=== PATIENT | female | born 2000 | race African-American/Black ===

== ENCOUNTER 2023-11-29 22:25 | Emergency (ER) | payer BC, SELFPAY ==
[2023-11-29 22:28] VITALS: BP 130/82; PULSE 100; RESP 14; TEMP 36.2; O2SAT 100
--- NOTE | 2023-11-29 23:53 | ED.HA ---
HPI - Headache General Chief Complaint: Headache Stated Complaint: headache Time Seen by Provider: 11/29/23 23:48 History of Present Illness HPI Narrative: 23-year-old female with reported history of migraines presents to emergency department for migraine and abdominal pain. Patient states she has had a migraine going on 3-4 days. States the pain was located by in her left eye but now has spread to her entire head. She reports associated photophobia denies phonophobia. Denies nausea or vomiting, diarrhea, fever. She is also reporting pain to her lower abdomen that started today. She states the pain is intermittent and describes it sharp in nature. She denies known aggravating or alleviating factors. Denies dysuria or hematuria, vaginal discharge, concern for STDs, prior abdominal surgeries. Last bowel movement was today and normal. Last menstrual period was 1 week ago and normal. Related Data Allergies Allergy/AdvReac Type Severity Reaction Status Date / Time No Known Allergies Allergy Verified 11/30/23 00:07 Review of Systems Review of Systems: All systems reviewed & are unremarkable except as noted in HPI and below Exam Narrative: GENERAL: Well-appearing, well-nourished, and in no acute distress. HEAD: Normocephalic, atraumatic. EYES: PERRLA and EOMI. ENT: Nares clear, no rhinorrhea or epistaxis. Mucous membranes moist. bilateral TMs are segura nonbulging normal canals. Normal posterior pharynx, no erythema or exudates. Uvula midline. NECK: Supple. No nuchal rigidity CHEST: Clear to auscultation. No respiratory distress. HEART: Regular rate and rhythm. No murmur heard. Normal peripheral pulses. ABDOMEN: normoactive bowel sounds. Abdomen soft with tenderness in the suprapubic region, left lower quadrant and right lower quadrant with voluntary guarding. No rebound or rigidity. No CVA tenderness. EXTREMITIES: Normal range of motion. No edema. SKIN: Warm, dry, no rash. NEURO: No focal deficits. Alert and oriented x3 . Moving all extremities spontaneously Course Vital Signs Vital signs: Vital Signs Temperature 97.2 F L 11/29/23 22:28 Pulse Rate 100 11/29/23 22:28 Respiratory Rate 14 11/29/23 22:28 Blood Pressure 130/82 11/29/23 22:28 Pulse Oximetry 100 11/29/23 22:28 Oxygen Delivery Room Air 11/29/23 22:28 Temperature 97.2 F L 11/29/23 22:28 Pulse Rate 92 11/30/23 01:45 Respiratory Rate 18 11/30/23 01:45 Blood Pressure 122/86 11/30/23 01:45 Pulse Oximetry 100 11/30/23 01:45 Oxygen Delivery Room Air 11/29/23 22:28 MDM - Headache MDM Narrative Medical decision making narrative: 23-year-old female with a reported history of migraines presents to emergency department for migraine for multiple dates and lower abdominal pain that started today. Her vitals are stable. Exam is significant for the above. CBC reveals leukocytosis of 20.6, microcytic anemia with a hemoglobin of 10.6, no bandemia. Chemistries with a mildly low potassium of 3.3, magnesium is normal. Potassium orally repleted. Lipase and lactic acid are normal. is negative. I was notified by shale processing technician that patient no longer wanted a CT. I re-evaluated the patient and she states that she would just like to go home. She states her headache has resolved her abdominal pain persists. I discussed my concerns for further workup for abdominal pain given her leukocytosis of 20.6. She verbalized understanding this but admits that she would still like to be discharged prior to CT scan. I discussed risks of leaving including undiagnosed appendicitis, diverticulitis, bowel obstruction and other and risks including worsening condition, disability and . She verbalizes understanding of these risks and will be leaving against medical advice. Advised her to come back to the emergency department if she would like further workup or evaluation. she also department in stable condition. Lab Data 11/30/23
[2023-11-30] VITALS: BP 120/89; PULSE 99; RESP 18; O2SAT 98
[2023-11-30] MEDS: KETOROLAC 15 MG/ML VIAL (*BKC) IV PUSH (00:17)
[2023-11-30] MEDS: diphenhydrAMINE HCl INJ 50 MG/ML VIAL 25 MG IV PUSH (00:17)
[2023-11-30] MEDS: PROCHLORPERAZINE EDISYLATE 10 MG/2 ML VIAL IV PUSH (00:18)
[2023-11-30] MEDS: SODIUM CHLORIDE 0.9% IV 1,000 ML 999 ML IV CONT (00:18)
[2023-11-30 00:29] LABS: Basophils Absolute Auto 0.1 K/mm3 (0.0-0.1); Basophils Percent Auto 0.3 % (0.2-1.2); Eosinophils Percent Auto 0.1 % (0-4.4); Hematocrit 34.9 % (37.0-47.0); Hemoglobin 10.6 g/dL (12.0-15.0); Immature Granulocyte Absolute 0.07 K/mm3 (0.00-0.031); Immature Granulocyte Percent A 0.3 % (0-0.5); Lymphocytes Percent Auto 14.6 % (18.3-44.2); Mean Corpuscular HGB Conc 30.4 g/dl (32-36); Mean Corpuscular Hemoglobin 22.2 pg (26-34); Mean Corpuscular Volume 73.2 fl (80-100); Mean Platelet Volume 9.4 fl (7.4-10.4); Monocytes Absolute Auto 1.1 K/mm3 (0.1-0.6); Monocytes Percent Auto 5.2 % (2.6-8.5); Neutrophils Absolute Auto 16.4 K/mm3 (1.3-6.7); Neutrophils Percent Auto 79.5 % (45.5-73.1); Platelet Count Result 476 k/mm3 (150-375); Red Blood Count 4.77 M/mm3 (4.2-5.4); Red Cell Distribution Width 16.6 % (11.5-14.5); White Blood Count 20.6 K/mm3 (4.5-10.0)
[2023-11-30 00:38] LABS: Lactic Acid Reflex 1.7 mmol/L (0.7-2.0)
[2023-11-30 00:39] LABS: Alanine Aminotransferase 12 U/L (6-35); Albumin Level 4.9 g/dL (3.5-5.1); Alkaline Phosphatase 56 U/L (38-126); Anion Gap 12 mmol/L (4-12); Aspartate Amino Transferase 24 U/L (14-36); Bilirubin,Total 0.8 mg/dL (0.2-1.3); Blood Urea Nitrogen 6 mg/dL (7-17); Calcium 9.4 mg/dL (8.4-10.2); Carbon Dioxide 25 mmol/L (22-30); Chloride 102 mmol/L (98-107); Estimated CRCL calculation 116 ml/min; Estimated Glomerular Filt Rate > 60; Glucose 90 mg/dL (65-110); Lipase 101 U/L (23-300); Potassium 3.3 mmol/L (3.4-5.0); Sodium 139 mmol/L (137-145)
[2023-11-30 01:01] LABS: Magnesium 1.8 mg/dL (1.6-2.3)
[2023-11-30] MEDS: POTASSIUM CHLORIDE 20 MEQ PACKET (FOR LIQUID) PO (01:39)
[2023-11-30 01:45] VITALS: BP 122/86; PULSE 92; RESP 18; O2SAT 100
--- NOTE | 2023-11-30 01:54 | PC.NURSE ---
This RN asked pt to sign 2 papers. AMA paperwork and dc papers. Pt only signed AMA paperwork prior to leaving.
[2023-11-30 02:02] LABS: Appearance Urine Cloudy (Clear); Bilirubin Urine Negative (Negative); Blood Urine Negative (Negative); Color Urine Yellow (Yellow); Glucose Urine UA Negative (Negative); Ketones Urine Trace mg/dL (Negative); Leukocyte Esterase Ur Negative LEU/UL (Negative); Nitrate Urine Negative (Negative); Protein Urine Trace mg/dL (Negative); Specific Grav Ur 1.027 (1.001-1.035); pH Urine 7.5 (5.0-9.0)
[2023-11-30 02:07] LABS: Add Urine Microscopic? YES
== END 2023-11-30 01:45 | disposition left against medical advice (07) ==
PROVIDERS: Emergency Provider Physician Assistant; PCP Physician Assistant Medical
DX: R51.9 Headache, unspecified (principal); R10.30 Lower abdominal pain, unspecified; D72.829 Elevated white blood cell count, unspecified
CPT/HCPCS: 36415; 80053; 81001; 81025; 83605; 83690; 83735; 85025; 96361; 96374; 96375; 99284; A9270; J0780; J1200; J1885; J7030

== ENCOUNTER 2024-11-30 16:07 | Emergency (ER) | payer MEDICAID, SELFPAY ==
--- OUTSIDE RECORDS SUMMARY | 2024-11-30 16:10 | XMS_ITS | Data Portability ---
Author Organization [facility] rupa [place] [place] Address [address] [place] [address] Assessment No assessment recorded. Plan of Treatment Reminders Order Date Submit Date Provider Last Modified By Organization Details Last Modified Time Details Appointments None recorded . Lab None recorded . Referral None recorded . Procedures None recorded . Surgeries None recorded . Imaging US, breast - PATIENT WITH PALPABLE MASS RIGHT BREAST HAS APPEARAN CE OF FIBROADE NOMA ON US IN THE OFFICE. FOLLOW UP IMAGING TO BE DONE IN AUGUST [id number] [email or web address] Not available 0 12:29:12 Medication Orders None recorded . Patient TargetsNo targets recorded. Patient InstructionsNo instructions recorded. Reason for Referral None Reported. Problems No Known Problems Procedures Surgical History Date Name Laterality Status Provider Name and Address Organization Details Recorded Time 9 US Diagnostic Breast completed Abdiel Infante MD [address] [place] [address], [id number] 02/19/2019 14:56:43 Imaging Results None recorded. Procedure Notes None recorded. Medical Equipment None Reported. Allergies No known drug allergies Medications Not known to be on any medication Vitals Date Recorded Body height Body mass index (BMI) Body mass index (BMI) [Percentile] Per age and sex Body weight Heart rate Systolic And Diastolic Provider Name and Address Organization Details Last Updated DateTime 9 170.18 cm 21.1 kg/m2 44 % 40520.9 7 g 94 /min 126/78 mm[Hg] [facility] 9 09:53:07 Social History Question Answer Notes LastModified by Organizat [employer] Details LastModified Time Tobacco Smoking Status Never Smoker [facility] [facility] null, [facility] 02/19/2019 09:53:20 Tobacco Status Never User [email or web address] Informati on not available 02/19/2019 Sex: Unknown Functional Status Question Answer Note LastModified by Organizat ion Details LastModified Time What is your level of alcohol consumption? Occasional once a month [email or web address] Information not available 02/19/2019 Mental Status None recorded. Family History Relationship Description Onset Age of this Age Resolved Age Notes LastModified by Organization Details LastModified Time Unspecified Relation Malignant tumor of breast [facility] [email or web address] Not available 02/19/2019 10:12:09 Medical History No medical history recorded. Gynecological History Statement/Question Response Flow Moderate Date of LMP 02/19/2019 Menses Monthly Y Age at Menarche 13 Number of pregnancies 0 LMP Definite Obstetrics History GPAL:G 0 P 0 0 0 0 Past Encounters Encounter ID Performer Location Encounter Start Date Encounter Closed Date Diagnosis/Indication Diagnosis SNOMED-CT Code Diagnosis ICD10 Code Diagnosis Note [id number] Abdiel Infante MD [facility] [address] , [address] [place] [address] 02/19/2019 09:28:05 02/19/2019 10:47:06 Breast lump [id number] N63.0 Patient with palpable right breast mass 10:00. By ultrasound this mass has features c/w a fibroadeno ma. The clinical and diagnostic findings were discussed with Ni Dada. Recommend observatio n for now, with follow up by imaging and exam in 6 months. See the order below. Abnormal f indings on diagnostic imaging of breast 221372359 R92.8 RIGHT breast US with well defined hypoechoic mass 10:00 3 cmfn, measuring 1.22 x 1.13 x 1.31. BI-RADS 3. Recommend short term follow up in 6 months. Health Concerns Section Related Observation LastModified by Organization Detai ls LastModified Time None Recorded Concern Status LastModified by Organization Details LastModified Time None Recorded Advance Directives Directive None Recorded Payers Insurance Date Sequence Insurance Name Policy Number Policy Tovar Covered Member ID Tovar Member ID Guarantor Name 02/19/2019 1 [facility] [id number] Beverly Irwin [id number] Beverly Garland Notes Date Note Type Note Provider Name and Address Organization Details Recorded Time 02/19/2019 text/html Ms Garland was referred by the urgent care center. She is a 19 yo young lady who presents with the complaint of a lump in the right breast one week ago. She states that it is tender along the outer aspect. She denies any skin changes but does report milky discharge. The discharge is spontaneous in nature. She states that she has not had imaging of the breast. Abdiel Infante MD [address] [place] [address], [place], [address], [facility] 02/19/2019 15:04:39 OBGyn Episode No OBEpisode recorded.
--- OUTSIDE RECORDS SUMMARY | 2024-11-30 16:10 | XMS_ITS | Clinical Summary ---
Author Organization [employer] Address [address] [place] [address] Care Team Providers Care Firer Locomotive Name Role Phone Unavailable Primary Care Provider Unavailabl e Encounters Date Type Department Care Team Description 10/03/2024 External Device Data [facility] ABSTRACTION Provider, Abstract 10/03/2024 External Device Data [facility] Provider, Abstract 10/02/2024 External Device Data [facility] Provider, Abstract 10/01/2024 External Device Data [facility] Provider, Abstract from Last 3 Months Social History Tobacco Use Types Packs/Day Years Used Date Smoking Tobacco: Never Assessed Comments Unknown Sex and Gender Information Value Date Recorded Sex Assigned at Not on file 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
--- OUTSIDE RECORDS SUMMARY | 2024-11-30 16:10 | XMS_ITS | Clinical Summary ---
Author Organization [facility] Address [address] [place] [id number] Care Team Providers Care Copy Chaser Name Role Phone None, Provider Primary Care Provider Unavaila ble Allergies No known active allergies Medications fluconazole (DIFLUCAN) 150 MG tablet Take 1 tablet (150 mg total) by mouth daily. 04/25/2023 Active FEROSUL 325 (65 Fe) MG tablet Take 1 tablet (325 mg total) by mouth daily with breakfast. 12/29/2023 Active Active Problems No known active problems Social History Tobacco Use Types Packs/Day Years Used Date Smoking Tobacco: Never Assessed Comments No Sex and Gender Information Value Date Recorded Sex Assigned at Not on file Legal Sex Female 3:51 PM CDT Gender Identity Not on file Sexual Orientation Not on file Last Filed Vital Signs Vital Sign Reading Time Taken Comments Blood Pressure 124/75 08/15/2024 9:55 AM CDT Pulse 78 08/15/2024 9:55 AM CDT Temperature 36.6 C (97.8 F) 08/15/2024 9:55 AM CDT Respiratory Rate 18 01/29/2024 6:39 PM CDT Oxygen Saturation 99% 08/15/2024 9:55 AM CDT Inhaled Oxygen Concentration - - Weight 63.5 kg (140 lb) 01/29/2024 6:39 PM CDT Height 167.6 cm (5' 6) 01/29/2024 6:39 PM CDT Body Mass Index 22.6 01/29/2024 6:39 PM CDT Plan of Treatment Health Maintenance Due Date Last Done Comments Cervical Cancer Screening Pap Smear (Age 21 to 29) Every 3 Years 2000 Cervical Cancer Screening 2000 Annual Physical 02/04/2003 Hepatitis C 02/04/2018 Meningococcal B Vaccine (2 of 2 - Bexsero SCDM 2-dose series) 07/16/2018 01/16/2018 COVID-19 Vaccine ( season) 2024 10/19/2020, 09/28/2020 PHQ-2 (Physician [place]) 05/15/2024 DTaP, Tdap and Td Vaccines (8 - Td or Tdap) 04/10/2033 04/10/2023, 06/16/2011, 03/02/2004, Additional history exists Hepatitis B Vaccines Completed 2000, 2000, 2000 Pneumococcal Vaccine: Pediatrics (0 to 5 Years) and At-Risk Patients (6 to 49 Years) Aged Out 2000, 2000, 2000 No longer eligible based on patient's age to complete this topic HPV Vaccines Completed 12/07/2012, 12/14, 06/16/2011 Meningococcal Vaccine Completed 01/09/2017, 012 RSV Immunizations Under 20 Months Aged Out No longer eligible based on patient's age to complete this topic Insurance Care Teams Copy Chaser Relationship Specialty Start Date End Date None, Provider, MD PCP - General UNKNOWN PHYSICIAN SPECIALTY 01/16/24
--- OUTSIDE RECORDS SUMMARY | 2024-11-30 16:10 | XMS_ITS | Encounter Summary ---
Author Organization [facility] Address [address] [place] [address] Care Team Providers Care Industrial Editor Name Role Phone Unavailable Primary Care Provider Unavailabl e Reason for Visit * Reason Onset Date Comments OTHER 09/08/2023 Encounter Details Date Type Department Care Team (Late st Contact Info) Description 09/08/2023 Telephone [facility] Primary Care - [address] [place] [phone] Sultana Luna PA-C NO ADDRESS ON FILE OTHER Social History Tobacco Use Types Packs/Day Years Used Date Smoking Tobacco: Never Assessed Comments Unknown Sex and Gender Information Value Date Recorded Sex Assigned at Not on file 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 * Telephone Encounter - Kanika Pina - 09/08/2023 2:34 PM CDT Copied from [facility] #[id number]. Topic: Patient or Caregiver Communication Request >> Sep 08, 2023 2:27 PM Kanika Mccoy wrote: Patient or Caregiver requesting advice Caller: Beverly Garland Patient/Caregiver Callback Number: [phone] Call Notes: Patient is asking for a call back from Sultana Luna. Relayed message in chart but patient is requesting a call back. documented in this encounter Plan of Treatment Not on file documented as of this encounter Visit Diagnoses Not on filedocumented in this encounter
--- OUTSIDE RECORDS SUMMARY | 2024-11-30 16:10 | XMS_ITS | Encounter Summary ---
Author Organization [facility] Address [address] [place] [address] Care Team Providers Care Sales Correspondence Clerk Name Role Phone Unavailable Primary Care Provider Unavailabl e Reason for Visit * Reason Comments Needs Form Or Letter Filled Out Encounter Details Date Type Department Care Team (Late st Contact Info) Description 08/31/2023 Telephone [facility] Primary Care - [address] [place] [phone] Sultana Luna PA-C NO ADDRESS ON FILE Needs Form Or Letter Filled Out Social History Tobacco Use Types Packs/Day Years Used Date Smoking Tobacco: Never Assessed Comments Unknown Sex and Gender Information Value Date Recorded Sex Assigned at Not on file 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 Topic: Patient or Caregiver Communication Request >> Aug 31, 2023 1:43 PM Etta Orourke wrote: Patient or Caregiver insisting that a message be sent to Care Team Caller: [phone] (home) Patient/Caregiver Callback Number: [phone] Call Notes: Patient reached out via chat- requesting to speak with her previous provider Sultana Luna. Per patient, I need to speak with Sultana Luna. It's an emergency please.She was my previous primary care doctor and she made a mistake on a form I needed for college. Due to the mistake, my University thinks I just dropped out of school. I need to talk to her as soon as possible please. Without the letter corrected from her, I will have to pay the university a large amount of money for a semester that I was medically withdrawn from. Please contact patient documented in this encounter Plan of Treatment Not on file documented as of this encounter Visit Diagnoses Not on filedocumented in this encounter
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
--- NOTE | 2024-11-30 16:13 | ECG_ITS ---
Test Date: 2024-11-30 16:30:37 Measurements Intervals [place] Rate: 76 P: 74 OK: 178 QRS: 101 QRSD: 76 T: 55 QT: 369 QTc: 417 Interpretive Statements SINUS RHYTHM MARKED RIGHT AXIS DEVIATION [QRS AXIS > 100] ABNORMAL ECG No previous ECG available for comparison Electronically Signed On 12-01-2024 08:09:12 CDT by Manny Arauz M.D.
[2024-11-30 16:37] VITALS: BP 111/74; PULSE 80; RESP 16; TEMP 36.6; O2SAT 100
[2024-11-30 16:40] LABS: Hematocrit 38.8 % (37.0-47.0); Hemoglobin 11.1 g/dL (12.0-15.0); Immature Granulocyte Percent A 0.3 % (0-0.5); Lymphocytes Absolute Auto 3.26 K/mm3 (0.9-3.2); Mean Corpuscular HGB Conc 28.6 g/dl (32-36); Mean Corpuscular Hemoglobin 20.3 pg (26-34); Mean Corpuscular Volume 70.8 fl (80-100); Nucleated Red Blood Cells Absolute Auto 0.000 K/mm3 (0.0-0.012); Nucleated Red Blood Cells Perc 0.0 % (0.0-0.2); Platelet Count Result 421 k/mm3 (150-375); Red Blood Count 5.48 M/mm3 (4.2-5.4); White Blood Count 10.1 K/mm3 (4.5-10.0)
[2024-11-30 16:51] LABS: INR 1.1; Prothrombin Time 14.6 Seconds (11.1-14.7)
[2024-11-30 16:52] LABS: Partial Thromboplastin Time 26.9 Seconds (22.3-36.8)
[2024-11-30 16:55] LABS: Alanine Aminotransferase 29 U/L (6-35); Albumin Level 5.0 g/dL (3.5-5.1); Alkaline Phosphatase 80 U/L (38-126); Anion Gap 17 mmol/L (4-12); Aspartate Amino Transferase 109 U/L (14-36); Bilirubin,Total 1.2 mg/dL (0.2-1.3); Blood Urea Nitrogen 13 mg/dL (7-17); Calcium 9.6 mg/dL (8.4-10.2); Carbon Dioxide 18 mmol/L (22-30); Chloride 103 mmol/L (98-107); Estimated CRCL calculation 90 ml/min; Estimated Glomerular Filt Rate > 60; Glucose 106 mg/dL (65-110); Lipase 122 U/L (23-300); Potassium 3.5 mmol/L (3.4-5.0); Sodium 138 mmol/L (137-145); Total Protein 9.6 g/dL (6.3-8.2)
[2024-11-30 17:04] LABS: Schistocytes None Seen
[2024-11-30 17:05] LABS: Anisocytosis 2+; Hypochromasia 1+
[2024-11-30 17:06] LABS: Microcytosis 1+ (NORMAL)
[2024-11-30 17:07] LABS: Troponin I < 0.012 ng/mL (0.000-0.034)
[2024-11-30 17:08] LABS: Band Neutrophils Percent 0 % (0-6)
--- NOTE | 2024-11-30 17:30 | PC.NURSE ---
Pt requesting to leave. PIV removed intact. Pt exits ED in NAD.
--- NOTE | 2024-11-30 17:32 | PC.NURSE ---
Pt. asked this RN to remove IV because she would like to leave. IV removed. Pt. A&Ox4 with a steady gait.
[2024-11-30 17:38] LABS: NT Pro B Type Natriuretic Pept < 20 pg/mL (19.9-100)
--- OUTSIDE RECORDS SUMMARY | 2024-11-30 17:42 | XMS_ITS | Clinical Summary ---
Author Organization [facility] Address [address] [place] [address] Care Team Providers Care Charging Operator Name Role Phone None, Provider Primary Care [...] ( season) 2024 10/19/2020, 09/28/2020 PHQ-2 (Physician [place]) 05/15/2024 DTaP, Tdap and Td Vaccines (8 [...] to complete this topic Insurance Care Teams Charging Operator Relationship Specialty Start Date End Date None, Provider, MD PCP - General UNKNOWN PHYSICIAN SPECIALTY 01/16/24
--- OUTSIDE RECORDS SUMMARY | 2024-11-30 17:42 | XMS_ITS | Clinical Summary ---
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
--- OUTSIDE RECORDS SUMMARY | 2024-11-30 17:42 | XMS_ITS | Encounter Summary ---
Author Organization [facility] Address [address] [place] [address] Care Team Providers Care Silk Screen Processor Name Role Phone Unavailable Primary Care Provider Unavailabl e Reason for Visit * Reason Onset Date Comments OTHER 09/08/2023 Encounter Details Date Type Department Care Team (Late st Contact Info) Description 09/08/2023 Telephone [facility] Primary Care - [address] [place] [phone] Sultana Luna PA-C NO ADDRESS ON FILE OTHER Social History Tobacco Use Types Packs/Day Years Used Date Smoking Tobacco: Never Assessed Comments Unknown Sex and Gender Information Value Date Recorded Sex Assigned at Not on file Legal Sex Female 2:40 PM MOTHER BABY RN Gender Identity Not on file Sexual Orientation Not on file documented as of this encounter Miscellaneous Notes * Telephone Encounter - Demario Jurado RN - 09/08/2023 3:03 PM CDT See other TE. * Telephone Encounter - Kanika Pina - 09/08/2023 2:34 PM CDT Copied from [facility] #[id number]. Topic: Patient or Caregiver Communication Request >> Sep 08, 2023 2:27 PM Kanika Mccoy wrote: Patient or Caregiver requesting advice Caller: Beverly Garland Patient/Caregiver Callback Number: [phone] Call Notes: Patient is asking for a call back from Sultana Luna. Relayed message in chart but patient is requesting a call back. documented in this encounter Plan of Treatment Not on file documented as of this encounter Visit Diagnoses Not on filedocumented in this encounter
--- OUTSIDE RECORDS SUMMARY | 2024-11-30 17:42 | XMS_ITS | Encounter Summary ---
Author Organization [facility] Address [address] [place] [address] Care Team Providers Care Envelope Folding Machine Operator Name Role Phone Unavailable Primary Care Provider Unavailabl e Reason for Visit * Reason Comments Needs Form Or Letter Filled Out Encounter Details Date Type Department Care Team (Late st Contact Info) Description 08/31/2023 Telephone [facility] Primary Care - [address] [place] [phone] Sultana Luna PA-C NO ADDRESS ON FILE Needs Form Or Letter Filled Out Social History Tobacco Use Types Packs/Day Years Used Date Smoking Tobacco: Never Assessed Comments Unknown Sex and Gender Information Value Date Recorded Sex Assigned at Not on file 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 Topic: Patient or Caregiver Communication Request >> Aug 31, 2023 1:43 PM Etta Orourke wrote: Patient or Caregiver insisting that a message be sent to Care Team Caller: [phone] (home) Patient/Caregiver Callback Number: [phone] Call Notes: Patient reached out via chat- [...]
== END 2024-11-30 18:15 | disposition left against medical advice (07) ==
PROVIDERS: Emergency Medicine; Emergency Provider Emergency Medicine; PCP Physician Assistant Medical
DX: R07.2 Precordial pain (principal)
CPT/HCPCS: 36415; 80053; 83690; 83880; 84484; 85025; 85380; 85610; 85730; 93005; 99199